=== PATIENT | female | born 1945 | race Caucasian/White ===

== ENCOUNTER 2016-09-27 09:00 | Emergency (ER) | payer MEDICARE, OTHER ==
[2016-09-27] MEDS ORDERED: Sodium Chloride 0.9% 10 ML Syringe FLUSH PRN (09:36)
--- NOTE | 2016-09-27 10:14 | EDM.PDOC ---
ED HISTORY OF PRESENT ILLNESS - General Chief Complaint: Cardiovascular Problem Stated Complaint: tingling to hands, face Time Seen by Provider: 09/27/16 09:17 Source of Information: Reports: Patient History Limitations: Reports: No limitations - History of Present Illness INITIAL COMMENTS - FREE TEXT/NARRATIVE: Patient comes in with complaints of facial numbness to the nose and mouth as well as to bilateral hands. She has had this happen in the past. Prior imaging included a CT, MRI, MRA which did not show any ischemia. They questioned whether this was a migraine or not. She also had elevated blood pressure with this as well. She has no other complaints today. Symptom Onset Date: 09/27/16 Symptom Onset Time: 08:00 Timing/Duration: Reports: Sudden onset Severity: moderate Location, General: Reports: face, upper extremity, left, upper extremity, right Improves with: Reports: None Worsens with: Reports: None Associated Symptoms (General): Reports: other (numbness) - Related Data Allergies/ADRs: Allergies Allergy/AdvReac Type Severity Reaction Status Date / Time codeine Allergy Nausea and Verified 09/27/16 09:59 Vomiting Home Meds: Home Meds Lisinopril [Lisinopril] 10 mg PO DAILY 09/13/15 [History] Multivitamin [Multi-Vitamin Daily] 1 tab PO DAILY 09/13/15 [History] Metoprolol Succinate [Toprol XL] 50 mg PO DAILY 10/24/15 [History] atorvaSTATin [Lipitor] 80 mg PO BEDTIME 10/24/15 [History] Clopidogrel [Plavix] 75 mg PO DAILY 07/06/16 [History] Nitroglycerin [Nitrostat] 0.4 mg SL Q5M PRN 07/06/16 [History] Omeprazole 20 mg PO DAILY PRN 07/06/16 [History] Rivaroxaban [Xarelto] 20 mg PO WITHDINNER 07/06/16 [History] Past Medical History HEENT History: Reports: Cataract, Other (see below) Other HEENT History: presbyopia. myopis. astigmatism Cardiovascular History: Reports: CAD, Heart Failure, High cholesterol, Hypertension, Stents, Other (see below) Other Cardiovascular History: wears a life vest. aortic valve disorder. nonsustained V tach. mitral valve regurgitation. ischemic cardiomyopahty Gastrointestinal History: Reports: Colon polyp, Diverticulosis Musculoskeletal History: Reports: Arthritis, Other (see below) Other Musculoskeletal History: disorder of bone and cartilage Neurological History: Reports: Other (see below) Other Neuro History: multiple and bilateral precerebral artery syndromes. diabetic polyneuropathy Endocrine/Metabolic History: Reports: Diabetes, type II - Past Surgical History HEENT Surgical History: Reports: Adenoidectomy, Tonsillectomy Cardiovascular Surgical History: Reports: Carotid stents GI Surgical History: Reports: Cholecystectomy Social & Family History - Tobacco Use Smoking Status *Q: Unknown Ever Smoked - Recreational Drug Use Recreational Drug Use: No ED ROS GENERAL - Review of Systems Review Of Systems: See Below Constitutional: Reports: no symptoms HEENT: Reports: No symptoms Respiratory: Reports: No Symptoms Cardiovascular: Reports: No symptoms Endocrine: Reports: no symptoms GI/Abdominal: Reports: No symptoms : Reports: no symptoms Musculoskeletal: Reports: no symptoms Skin: Reports: no symptoms Neurological: Reports: Numbness, Tingling (nose, mouth, chin and bilateral hands ) Psychiatric: Reports: No symptoms Hematologic/Lymphatic: Reports: no symptoms Immunologic: Reports: no symptoms ED EXAM, GENERAL - Physical Exam Exam: See Below Exam Limited By: No limitations General Appearance: alert, WD/WN, no apparent distress Eye Exam: bilateral eye: EOMI, PERRL Ears: normal TMs Nose: normal inspection Throat/Mouth: Normal inspection, Normal oropharynx Head: atraumatic, normocephalic Neck: normal inspection, supple Respiratory/Chest: no respiratory distress, lungs clear, normal breath sounds Cardiovascular: normal peripheral pulses, other (sinus rhythm with bigeminal pvc 's) GI/Abdominal: normal bowel sounds, soft Back Exam: normal inspection, full range of motion Extremities: normal inspection, normal range of motion, non-tender, pedal edema Neurological: alert, oriented, CN II-XII intact, normal cognition Psychiatric: normal affect, normal mood Skin Exam: Warm, Dry, Intact, Normal color Lymphatic: no adenopathy Departure - Departure Time of Disposition: 12:40 Disposition: Home, Self-Care 01 Condition: good Clinical Impression: Arrhythmia Qualifiers: Arrhythmia type: other cardiac arrhythmia Qualified Code(s): I49.8 - Other specified cardiac arrhythmias Instructions: Hypomagnesemia, Premature Ventricular Contraction Additional Instructions: I did talk with the secondary social studies teacher merchandise execution leader Dr. Gibbs. He did advise to have you be placed on a holter monitor and to increase your beta shelbie. This is something you will need to follow up with Dr. Hernández as your pulse is borderline for increasing the dose. Make a follow up appointment with Dr. Hernández after your holter monitor. 1. See Dr. Arrington or her nurse for holter application 2. Schedule to see Dr. Hernández Please call with any other questions or concerns. - Problem List & Annotations (1) Arrhythmia SNOMED Code(s): 513059414 Code(s): I49.9 - CARDIAC ARRHYTHMIA, UNSPECIFIED Status: Acute Priority: Medium Current Visit: Yes Qualifiers: Arrhythmia type: other cardiac arrhythmia Qualified Code(s): I49.8 - Other specified cardiac arrhythmias - Problem List Review Problem List Initiated/Reviewed/Updated: Yes - Assessment/Plan Assessment:: Bigeminal PVC's Plan: I did talk with the secondary social studies teacher merchandise execution leader Dr. Gibbs. He did advise to have you be placed on a holter monitor and to increase your beta shelbie. This is something you will need to follow up with Dr. Hernández as your pulse is borderline for increasing the dose. Make a follow up appointment with Dr. Hernández after your holter monitor. 1. See Dr. Arrington or her nurse for holter application 2. Schedule to see Dr. Hernández Please call with any other questions or concerns.
[2016-09-27] MEDS ORDERED: Lisinopril 20 MG Tab PO ONE (11:15)
[2016-09-27] MEDS ORDERED: Magnesium Chloride 64 MG Tab.ER PO ONE (11:19)
[2016-09-27] MEDS ORDERED: Labetalol 20 MG/4 ML Syringe IVPUSH ONE (11:20)
[2016-09-27 15:01] VITALS: BP 184/79
== END 2016-09-27 12:30 | disposition home or self-care (01) ==
LOC: VM.ED 09:00
DX: I49.8 Other specified cardiac arrhythmias (principal); I25.10 Atherosclerotic heart disease of native coronary artery without angina pectoris; I50.9 Heart failure, unspecified; E78.00 Pure hypercholesterolemia, unspecified; I10 Essential (primary) hypertension; I25.5 Ischemic cardiomyopathy; E11.42 Type 2 diabetes mellitus with diabetic polyneuropathy; Z88.8 Allergy status to other drugs, medicaments and biological substances; Z79.899 Other long term (current) drug therapy; Z95.5 Presence of coronary angioplasty implant and graft
CPT/HCPCS: 36415; 70450; 80053; 82550; 82553; 83735; 83880; 84484; 85025; 85610; 93005; 96374; 99285; A9270; 99282-GF

== ENCOUNTER 2017-07-01 15:42 | Inpatient (IN) | payer MEDICARE, OTHER ==
[2017-07-01] MEDS ORDERED: Sodium Chloride 0.9% 1,000 ML IV ONE (15:53)
[2017-07-01] MEDS ORDERED: Iopamidol 612 MG/ML 100 ML Bottle IVPUSH ONE (16:35)
--- NOTE | 2017-07-01 16:52 | EDM.PDOC ---
ED HPI GENERAL MEDICAL PROBLEM - General Chief Complaint: Cardiovascular Problem Stated Complaint: LEFT SIDE PAIN Time Seen by Provider: 07/01/17 15:46 Source of Information: Reports: Patient History Limitations: Reports: No Limitations - History of Present Illness INITIAL COMMENTS - FREE TEXT/NARRATIVE: I received a call from GABE Zacarias from the [facility] regarding this patient. She was sent over to work her up for possible PE. She has a history of prior stent in 2016, PE in 2016 as well. She reports left sided arm , shoulder, and lateral rib/chest pain since this morning. She does also state she is short of breath with exertion. She also states that these symptoms are similar to her prior PE experience. Pain does increase with palpation and movement. Onset: Today, Sudden Onset Date: 07/01/17 Location: Reports: Chest, Upper Extremity, Left Quality: Reports: Pressure, Sharp Severity: Mild Worsens with: Reports: Movement Associated Symptoms: Reports: Shortness of Breath - Related Data Allergies Allergy/AdvReac Type Severity Reaction Status Date / Time codeine Allergy Nausea and Verified 07/01/17 16:49 Vomiting Home Meds: Home Meds Lisinopril [Lisinopril] 10 mg PO DAILY 09/13/15 [History] Multivitamin [Multi-Vitamin Daily] 1 tab PO DAILY 09/13/15 [History] atorvaSTATin [Lipitor] 80 mg PO BEDTIME 10/24/15 [History] Clopidogrel [Plavix] 75 mg PO DAILY 07/06/16 [History] Nitroglycerin [Nitrostat] 0.4 mg SL Q5M PRN 07/06/16 [History] Magnesium 400 mg PO DAILY 11/10/16 [History] Metoprolol Succinate [Toprol Xl] 100 mg PO DAILY 11/10/16 [History] Amiodarone HCl 100 mg PO DAILY 05/23/17 [History] Acetaminophen [Pain Relief] 325 mg PO Q4HR PRN 07/01/17 [History] Aspirin [Halfprin] 81 mg PO DAILY 07/01/17 [History] Cholecalciferol (Vitamin D3) [Vitamin D3] 1,000 units PO DAILY 07/01/17 [History ] Docusate Sodium 100 mg PO DAILY 07/01/17 [History] Past Medical History HEENT History: Reports: Cataract, Other (See Below) Other HEENT History: presbyopia. myopis. astigmatism Cardiovascular History: Reports: CAD, Heart Failure, High Cholesterol, Hypertension, Stents, Other (See Below) Other Cardiovascular History: wears a life vest. aortic valve disorder. nonsustained V tach. mitral valve regurgitation. ischemic cardiomyopahty Gastrointestinal History: Reports: Colon Polyp, Diverticulosis Musculoskeletal History: Reports: Arthritis, Other (See Below) Other Musculoskeletal History: disorder of bone and cartilage Neurological History: Reports: Other (See Below) Other Neuro History: multiple and bilateral precerebral artery syndromes. diabetic polyneuropathy Endocrine/Metabolic History: Reports: Diabetes, Type II - Past Surgical History Cardiovascular Surgical History: Reports: Carotid Stents Social & Family History - Tobacco Use Smoking Status *Q: Unknown Ever Smoked - Recreational Drug Use Recreational Drug Use: No ED ROS GENERAL - Review of Systems Review Of Systems: See Below Constitutional: Reports: No Symptoms HEENT: Reports: No Symptoms Respiratory: Reports: Shortness of Breath Endocrine: Reports: No Symptoms GI/Abdominal: Reports: No Symptoms : Reports: No Symptoms Musculoskeletal: Reports: Shoulder Pain, Back Pain Skin: Reports: No Symptoms Neurological: Reports: No Symptoms Psychiatric: Reports: No Symptoms Hematologic/Lymphatic: Reports: No Symptoms Immunologic: Reports: No Symptoms ED EXAM, GENERAL - Physical Exam Exam: See Below Exam Limited By: No Limitations General Appearance: Alert, WD/WN, Mild Distress Eye Exam: Bilateral Eye: EOMI, PERRL Ears: Normal TMs Throat/Mouth: Normal Inspection, Normal Lips, Normal Teeth, Normal Gums, Normal Oropharynx, Normal Voice, No Airway Compromise Head: Atraumatic, Normocephalic Neck: Normal Inspection, Supple, Non-Tender, Full Range of Motion Respiratory/Chest: No Respiratory Distress, Lungs Clear, Normal Breath Sounds, No Accessory Muscle Use, Chest Non-Tender Cardiovascular: Normal Peripheral Pulses, Regular Rate, Rhythm, No Edema, No Gallop, No JVD, No Murmur, No Rub Peripheral Pulses: 2+: Posterior Tibial (L), Posterior Tibial (R), Dorsalis Pedis (L), Dorsalis Pedis (R) GI/Abdominal: Normal Bowel Sounds, Soft, Non-Tender, No Organomegaly, No Distention, No Abnormal Bruit, No Mass Back Exam: Normal Inspection, Full Range of Motion, NT Extremities: Normal Capillary Refill, Arm Pain (left arm pain) Neurological: Alert, Oriented, CN II-XII Intact, Normal Cognition, Normal Gait, Normal Reflexes, No Motor/Sensory Deficits Psychiatric: Normal Affect, Normal Mood Skin Exam: Warm, Dry, Intact, Normal Color, No Rash Lymphatic: No Adenopathy EKG INTERPRETATION EKG Date: 07/01/17 Time: 15:56 Rhythm: NSR Celina: Normal P-Wave: Present QRS: Normal ST-T: Normal QT: Normal Course - Orders/Labs/Meds Orders: Active Orders 24 hr Category Date Time Status EKG Documentation Completion [RC] ROUTINE Care 07/01/17 15:53 Ordered Ang Chest [CT] Stat Exams 07/01/17 15:53 Ordered COMPREHENSIVE METABOLIC PN,CMP [CHEM] Stat Lab 07/01/17 15:53 Ordered PRO B-TYPE NATRIUR PEPT,BNPPRO [CHEM] Stat Lab 07/01/17 15:53 Ordered Sodium Chloride 0.9% [Normal Saline] 1,000 ml Med 07/01/17 15:53 Ordered IV ONETIME Sodium Chloride 0.9% [Saline Flush] Med 07/01/17 15:53 Ordered 10 ml FLUSH ASDIRECTED PRN Saline Lock Insert [OM.PC] Routine Oth 07/01/17 15:53 Ordered Medication Orders Sodium Chloride (Normal Saline) 1,000 mls @ 999 mls/hr IV ONETIME ONE Stop: 07/01/17 16:53 Last Admin: 07/01/17 16:10 Dose: 999 mls/hr Sodium Chloride (Saline Flush) 10 ml FLUSH ASDIRECTED PRN PRN Reason: Keep Vein Open Labs: Laboratory Tests 07/01/17 07/01/17 Range/Units 16:06 16:06 WBC 8.1 (4.0-10.0) x10^3/uL RBC 3.62 L (4.00-5.50) x10^6/uL Hgb 11.2 L (12.0-16.0) g/dL Hct 35.1 (33.0-47.0) % MCV 97.0 H D (78.0-93.0) fL MCH 30.9 (26.0-32.0) pg MCHC 31.9 L (32.0-36.0) g/dL RDW Coeff of Sarah 14.2 (10.0-15.0) % Plt Count 194 (130-400) x10^3/uL Neut % (Auto) 71.4 (50.0-80.0) % Lymph % (Auto) 15.6 L (25.0-50.0) % Coleman % (Auto) 12.2 H (2.0-11.0) % Eos % (Auto) 0.7 (0.0-4.0) % Baso % (Auto) 0.1 L (0.2-1.2) % PT 10.5 (9.8-11.8) SEC INR 1.0 L (2.0-3.5) D-Dimer, Quantitative > 4.40 H (<=0.58) mg/LFEU Meds: Medications Generic Name Dose Route Start Last Admin Trade Name Freq PRN Reason Stop Dose Admin Sodium Chloride 1,000 mls @ 999 mls/hr 07/01/17 15:53 07/01/17 16:10 Normal Saline IV 07/01/17 16:53 999 mls/hr ONETIME ONE Administration Sodium Chloride 10 ml 07/01/17 15:53 Saline Flush FLUSH ASDIRECTED PRN Keep Vein Open Discontinued Medications Generic Name Dose Route Start Last Admin Trade Name Freq PRN Reason Stop Dose Admin Iopamidol 100 ml 07/01/17 16:35 Isovue-300 (61%) IVPUSH 07/01/17 16:36 ONETIME ONE - Re-Assessments/Exams Free Text/Narrative Re-Assessment/Exam: 07/01/17 18:28 CTA shows bilateral pulmonary emboli will admit Departure - Departure Time of Disposition: 18:40 Disposition: Admitted As Inpatient 66 Condition: Good Clinical Impression: Bilateral pulmonary embolism Forms: ED Department Discharge - My Orders Last 24 Hours: My Active Orders 07/01/17 15:53 EKG Documentation Completion [RC] ROUTINE Ang Chest [CT] Stat COMPREHENSIVE METABOLIC PN,CMP [CHEM] Stat PRO B-TYPE NATRIUR PEPT,BNPPRO [CHEM] Stat Sodium Chloride 0.9% [Normal Saline] 1,000 ml IV ONETIME Sodium Chloride 0.9% [Saline Flush] 10 ml FLUSH ASDIRECTED PRN Saline Lock Insert [OM.PC] Routine - Assessment/Plan Last 24 Hours: My Active Orders 07/01/17 15:53 EKG Documentation Completion [RC] ROUTINE Ang Chest [CT] Stat COMPREHENSIVE METABOLIC PN,CMP [CHEM] Stat PRO B-TYPE NATRIUR PEPT,BNPPRO [CHEM] Stat Sodium Chloride 0.9% [Normal Saline] 1,000 ml IV ONETIME Sodium Chloride 0.9% [Saline Flush] 10 ml FLUSH ASDIRECTED PRN Saline Lock Insert [OM.PC] Routine
[2017-07-01] MEDS ORDERED: HYDROmorphone 1 MG/ML Syringe IVPUSH ONE (20:21)
[2017-07-01] MEDS: Sodium Chloride 0.9% 10 ML Syringe FLUSH PRN (20:26)
[2017-07-01] MEDS: Enoxaparin 80 MG/0.8 ML Syringe SUBCUT SCH (20:26)
[2017-07-01] MEDS ORDERED: Nitroglycerin 0.4 MG Tab.SL SL PRN (22:07)
[2017-07-01] MEDS ORDERED: Docusate Sodium 100 MG Cap PO PRN (22:07)
[2017-07-01] MEDS ORDERED: HYDROmorphone 1 MG/ML Syringe IVPUSH PRN (22:20)
[2017-07-02] MEDS: atorvaSTATin 40 MG Tab PO SCH ×2 (01:27→19:53)
[2017-07-02] MEDS: Sodium Chloride 0.9% 10 ML Syringe FLUSH PRN ×4 (01:34→19:54)
[2017-07-02] MEDS: Ondansetron 4 MG/2 ML SDV IVPUSH PRN (03:05)
[2017-07-02] MEDS: Amiodarone 200 MG Tab PO SCH (08:00)
[2017-07-02] MEDS ORDERED: Lisinopril 10 MG Tab PO SCH (08:00)
[2017-07-02] MEDS: Enoxaparin 80 MG/0.8 ML Syringe SUBCUT SCH (08:00)
[2017-07-02] MEDS: Aspirin 81 MG Tab.EC PO SCH (08:02)
[2017-07-02] MEDS: Metoprolol Succinate 50 MG Tab.ER PO SCH (08:03)
[2017-07-02] MEDS: Magnesium Oxide 400 MG Tab PO SCH (08:03)
[2017-07-02] MEDS: traMADol 50 MG Tab PO PRN ×3 (08:04→21:52)
--- NOTE | 2017-07-02 09:50 | HP ---
REASON FOR ADMISSION: Shortness of breath and pleuritic chest pain. HISTORY OF PRESENT ILLNESS: This 71-year-old white female had the onset about 4:30 this morning of a stabbing pain, started in her left shoulder, moved down into her left lateral chest, did not go into her arm, otherwise was pleuritic in character. She rated the pain at 8/10. She tried to go back to sleep about 7:30, could sleep and got up. She did report shortness of breath and fatigue. Later during the day moved over to the right side of her lungs, also on right chest wall. She had come to see her who is on swing bed. She was going home, decided that she needs to be seen, was seen in the clinic, and then we transferred her to the emergency room for further evaluation and management; with subsequent evaluation revealed bilateral PE. PAST MEDICAL HISTORY: Significant. She has coronary artery disease, question of [place], congestive heart failure, ischemic cardiomyopathy. She had a stent placed in 2015. She continues on both aspirin and Plavix for this. She also has aortic valve disease. In 2015, she had bilateral PE and a right DVT, treated with Xarelto for about 1 year. This was stopped in January of this 2016. Sometime in 2015, she had a hemoglobin drop to 6.2 while she was on the aspirin, Plavix, and Xarelto. She needed 2 units of blood. She had an EGD but no colonoscopy. They are not certain as to why the hemoglobin dropped. No evidence of blood loss that they could find per her report. Last colonoscopy was in 2011. Her father has a history of colon cancer. She has had cataract surgery, cholecystectomy for cholelithiasis, tonsils, bilateral tubal ligation. She has osteoarthritis in her knees. She had a fall this past . MEDICATIONS: 1. Plavix 75 mg daily. 2. Amiodarone 100 mg daily. 3. Lipitor 80 mg at bedtime. 4. Metoprolol succinate 50 mg daily. 5. Magnesium 400 mg daily. 6. Lisinopril 10 mg daily. 7. Multivitamin daily. 8. Aspirin 81 mg daily. 9. Vitamin D3 1000 units daily. 10.Tylenol p.r.n. 11.Colace 100 mg daily p.r.n. 12.Nitroglycerin sublingual p.r.n. ALLERGIES: Codeine causes GI upset with nausea and vomiting. REVIEW OF SYSTEMS: She has had an occasional cough. No nausea or vomiting. No numbness or tingling. No abdominal pain. She has slight headache. No dizziness. No lightheadedness. No change in bowel or bladder habits. OBJECTIVE: General: She is alert. Vital Signs: She is afebrile. Blood pressure is 148/78, pulse 101, respirations are 20, O2 saturation is 97% on room air. HEENT: TMs negative. Throat is clear. Neck: Supple. No adenopathy. Heart: Regular rate and rhythm. No murmur heard. Lungs: The lungs have decreased breath sounds. Otherwise clear. Abdomen: Soft and nontender. No masses palpable. No hepatosplenomegaly noted. Normoactive bowel sounds. Neurological: Cranial nerves are intact. Deep tendon reflexes are symmetrical. Sensation is intact. Extremities: Moves all 4 extremities. There is no edema. Pulses are intact. The left lateral chest wall is somewhat tender to palpation, but there is also significant pain with respiration. LABORATORY DATA: White count is 8.1, hemoglobin is 11.2. INR 1, D-dimer is over 4.4. Creatinine is 1.8, GFR of 28, glucose 141. LFTs are normal. ProBNP is 349. Albumin 3.1. EKG shows normal sinus rhythm. No acute changes. CT PE protocol shows significant bilateral pulmonary emboli as read per Radiology. ASSESSMENT: 1. Bilateral pulmonary emboli. 2. Coronary artery disease status post stenting. 3. History of ischemic cardiomyopathy. 4. Congestive heart failure. 5. Hypertension. 6. Diabetes mellitus type 2. PLAN: The patient will be admitted to acute care, will be kept on aspirin. Hold her Plavix. Start Lovenox 1 mg/kg q.12 hours for PE treatment. We will need to discuss with leaflet distributor how they would like to proceed with her anticoagulation and anti-platelet agents. We will consider aspirin and Eliquis. At this point, I do not feel that Xarelto would be appropriate as her GFR is 28. Continue other medications. Manage her pain. Monitor her condition. She states Dr. Brandy Arrington is her primary provider. FM: 07/01/2017 22:20:06 MODL: 07/02/2017 06:09:13 /[id number] MTDVick
[2017-07-02] MEDS: Acetaminophen 325 MG Tab PO PRN ×2 (10:31→19:53)
--- NOTE | 2017-07-02 15:35 | PN ---
Progress Note for DARVIN CHANG Date: 07/02/2017 Room #: VM.214 SUBJECTIVE: A 71-year-old white female admitted last evening with bilateral pulmonary emboli. She was started on therapeutic Lovenox b.i.d., and given Dilaudid and tramadol for pain control. The first dose of Dilaudid, she tolerated. The second dose last evening caused nausea and vomiting requiring treatment with Zofran. She was then given tramadol earlier this morning, which seemed to help her pain and she tolerated. She continues to have some left pleuritic chest pain moving over to the right side. She also spiked a temperature today up to 102. Given some Tylenol, this improved her temperature and also the associated headache. OBJECTIVE: General: She is alert. Vital Signs: Pulse is 73, blood pressure is 125/50, respirations of 14, and O2 saturations are 94% on room air. HEART: Regular rate and rhythm. LUNGS: Clear. ABDOMEN: Soft. EXTREMITIES: No edema. LABORATORY DATA: Today, white count 6.9, hemoglobin 10.2. Electrolytes are normal. Creatinine is improved to 1.5, GFR 34, glucose was 193. Review of CT scan for PE last evening indicates patchy infiltrates in the right upper lobe, felt to be infarctions along with bilateral PE. ASSESSMENT: 1. Bilateral pulmonary embolism. 2. Fever. PLAN: 1. Continue aspirin and Lovenox. 2. Contact Cardiology to discuss appropriate anticoagulation in lieu of her being previously on aspirin and Plavix. 3. Obtain chest x-ray and urinalysis. 4. Obtain lactic acid and lab drawn this morning. 5. Monitor her condition. FM: 07/02/2017 12:12:17 MODL: 07/02/2017 15:31:01 /[id number]
[2017-07-02] MEDS: Apixaban 2.5 MG Tab PO SCH (19:54)
[2017-07-03] MEDS ORDERED: Lisinopril 10 MG Tab PO SCH ×2 (07:54→09:35)
[2017-07-03] MEDS: Ondansetron 4 MG/2 ML SDV IVPUSH PRN (08:00)
[2017-07-03] MEDS: Lisinopril 10 MG Tab PO SCH (10:07)
[2017-07-03] MEDS: Apixaban 2.5 MG Tab PO SCH ×2 (10:08→20:22)
[2017-07-03] MEDS: Aspirin 81 MG Tab.EC PO SCH (10:09)
[2017-07-03] MEDS: Amiodarone 200 MG Tab PO SCH (10:09)
[2017-07-03] MEDS: Metoprolol Succinate 50 MG Tab.ER PO SCH (10:10)
[2017-07-03] MEDS: Magnesium Oxide 400 MG Tab PO SCH (10:10)
--- NOTE | 2017-07-03 10:33 | PN ---
Progress Note for DARVIN CHANG Date: 07/03/2017 Room #: VM.214 SUBJECTIVE: A 71-year-old white female, admitted on Tuesday evening with bilateral pulmonary embolism. She states her chest pain is improved, but still has pain. She rolls over to the left side and some pain in the bases with deep breaths. She complains of being dyspneic. She is a little bit lightheaded when she sits up. She has had problems with some nausea yesterday and some nausea again this morning. She is noted to be hypotensive with blood pressures running in the 100 systolic range. OBJECTIVE: General: She is alert. Vital Signs: Blood pressure has been running 99 to 112 this morning, sometimes 128. Pulse is in the 70s. She is afebrile today. O2 sats down to 92% on room air. Heart: Regular rate and rhythm. Lungs: Clear to auscultation. Abdomen: Soft, nontender. No mass. Extremities: No edema. Warm and dry. LABORATORY DATA: From yesterday, chest x-ray was consistent with post PE pleural reaction and bibasilar atelectasis. No evidence of pulmonary infarction on previous CT scan. Next, urinalysis was unremarkable. ASSESSMENT: 1. Bilateral pulmonary embolism. 2. Evidence of pulmonary infarction. 3. Hypotension. 4. Nausea. PLAN: 1. Because of hypotension, would decrease lisinopril to 5 mg daily. 2. Start her O2 at 2 L because of mild decline in O2 sats and evidence of pulmonary infarction. 3. Zofran for nausea. 4. Continue to monitor her condition. She will continue on acute care status to monitor her current vital signs and O2 sats. 5. Dr. Brandy Arrington will assume care in the morning. FM: 07/03/2017 10:01:07 MODL: 07/03/2017 10:29:57 /[id number] DAVID
[2017-07-03] MEDS: Acetaminophen 325 MG Tab PO PRN (14:08)
[2017-07-03] MEDS: atorvaSTATin 40 MG Tab PO SCH (20:22)
[2017-07-03] MEDS: Sodium Chloride 0.9% 10 ML Syringe FLUSH PRN (20:24)
[2017-07-04] MEDS: Acetaminophen 325 MG Tab PO PRN (02:49)
[2017-07-04] MEDS: Apixaban 2.5 MG Tab PO SCH (07:54)
[2017-07-04] MEDS: Lisinopril 10 MG Tab PO SCH (07:55)
[2017-07-04] MEDS: Magnesium Oxide 400 MG Tab PO SCH (07:55)
[2017-07-04] MEDS: Metoprolol Succinate 50 MG Tab.ER PO SCH (07:55)
[2017-07-04] MEDS: Aspirin 81 MG Tab.EC PO SCH (07:56)
[2017-07-04] MEDS: Amiodarone 200 MG Tab PO SCH (07:56)
[2017-07-04 09:49] VITALS: BP 115/55
--- NOTE | 2017-07-04 10:06 | PN ---
Progress Note for DARVIN CHANG Date: 07/04/2017 Room #: VM.214 SUBJECTIVE: She is feeling much better today. The patient has left chest wall soreness. Her blood pressure has improved. She is not having as much chest wall pain. She does feel able to go home today. OBJECTIVE: Vital Signs: Her temperature is 36.6, pulse 64, blood pressure is 127/61. Her sats were 98% on room air. General; Alert, appears comfortable on room air. Heart: Regular rate and rhythm. Lungs: Some inspiratory crackles bilaterally. Abdomen: Soft. Neuro: Alert times 3. Psych; Mood is good. LABORATORY DATA: Her hemoglobin today is 10.0. Sodium is 140, potassium 4.7, and creatinine 1.5. IMPRESSION: 1. Bilateral pulmonary embolisms. 2. Hypotension, improved. 3. Hypertension. 4. Pleuritic chest pain. 5. Anemia. PLAN: We will let the patient go home today. We will keep her on her lower dose of lisinopril of 5 mg a day. I am going to have her return to see me in the clinic in 10 days' time for a recheck. The eliquis will be 10 mg bid for 1 week, then 5 mg bid. GM07/04/2017 08:46:37 MODL: 07/04/2017 09:09:40 /[id number] MTDD
--- NOTE | 2017-07-05 00:28 | DISCH ---
PRIMARY DIAGNOSES: 1. Bilateral pulmonary embolism. 2. Hypoxemia due to pulmonary embolism. 3. Hypotension due to pain medications. 4. Hypertension. 5. Coronary artery disease. 6. Anemia, multifactorial. SUMMARY OF ADMIT HISTORY AND PHYSICAL: The patient is a 71-year-old female who presented initially to the clinic on 07/01/2016. She was having some left shoulder aching and soreness. She was concerned as this is what she had felt like before when she had PE. She denies being short of breath. Her has been hospitalized with recent problems with his lung cancer health and so she probably has not been as active as she used to be. SUMMARY OF HOSPITAL COURSE: When the patient was seen in the emergency room, she was found to have a positive D-dimer greater than 4.4. CT of chest showed bilateral PEs. The patient's EKG was normal. Troponin was normal. The patient was admitted to acute care. She was placed on heparin and Eliquis after provider conferred with leaf stamper. Her Plavix was stopped. She was placed on a baby aspirin. To note, she received some Dilaudid for pain control for her pleuritic chest pain. She became hypotensive and nauseated and needed to have some Zofran. Her lisinopril dose was reduced down. Her blood pressure on the day of discharge was good at 124. Her lab had shown that her hemoglobin on admission had been 11.2 had dropped down to 10.0, white blood cell count 6.1, platelets were 216. Discharge sodium was 140, potassium 4.7, creatinine 1.5 it was 1.8 on admission. GFR was 28 on admission, was up to 34. Her troponin was less than 0.017 on admission. ProBNP was 349 on admission. Urinalysis was checked, it was negative. To note, a chest x-ray was done on 07/02/2016, which did show some atelectasis on bases, which was felt to be subsequent due to her PEs. By the morning of 07/04, she was up here, walking around, and felt to be able to go home. MEDICATIONS: Her medications on discharge will be Eliquis 10 mg b.i.d. through 07/09/2017, then she will be placed on 5 mg 1 p.o. b.i.d., most likely indefinite use. She will be on acetaminophen 325 q.4 hours p.r.n., amiodarone 100 mg 1 pill daily, aspirin 81 mg 1 pill daily, Lipitor 80 mg 1 at bedtime, docusate 100 mg 1 daily p.r.n., lisinopril 5 mg daily, magnesium oxide 400 mg 1 pill daily, metoprolol succinate 50 mg 1 pill daily, nitroglycerin 0.4 q.5 minutes x3 p.r.n. The patient should use an incentive spirometry q.i.d. p.r.n. We will have her return to see me in the clinic in 10 days time. At that time, she will need to have a CBC and a basic metabolic profile. Also, she will need a chest x-ray for followup of her lung expansion. GM07/04/2017 08:50:19 MODL: 07/05/2017 00:23:15 /[id number]
[2017-07-05] MEDS ORDERED: Lisinopril 5 MG Tab PO SCH (08:00)
[2017-07-09] MEDS ORDERED: Apixaban 2.5 MG Tab PO SCH (20:00)
== END 2017-07-04 13:18 | disposition home or self-care (01) | DRG 176 ==
LOC: VM.ED 15:42 → VM.MS 18:30
PROVIDERS: ADMIT Family Medicine; ATTEND Family Medicine
DX: I26.99 Other pulmonary embolism without acute cor pulmonale (principal); J98.11 Atelectasis; R09.02 Hypoxemia; I95.2 Hypotension due to drugs; I25.10 Atherosclerotic heart disease of native coronary artery without angina pectoris; D64.9 Anemia, unspecified; I50.9 Heart failure, unspecified; I35.9 Nonrheumatic aortic valve disorder, unspecified; Z86.718 Personal history of other venous thrombosis and embolism; E11.9 Type 2 diabetes mellitus without complications; I11.0 Hypertensive heart disease with heart failure; R06.02 Shortness of breath
CPT/HCPCS: 71275; 80053; 83880; 84484; 85025; 85379; 85610; 93005; 96360; 96361; 99285; J7030; Q9967; 36415; 71046; 80048; 81001; 83605; 85027; 94760; A9270-GY; J1170; J1650; J2405; J7050

== ENCOUNTER 2021-10-26 08:44 | Emergency (ER) | payer MEDICARE, OTHER ==
[2021-10-26] MEDS ORDERED: Sodium Chloride 0.9% 10 ML Syringe FLUSH PRN (09:04)
[2021-10-26 09:47] LABS: ANION GAP 15.3 mmol/L (5-15)
[2021-10-26] MEDS: Aspirin 81 MG Tab.Chew PO ONE (10:18)
[2021-10-26] MEDS: Heparin Sodium 5,000 Units/ML Vial IVPUSH ONE (10:34)
[2021-10-26] MEDS: Heparin Sodium/0.45% NaCl 25,000 UNITS/500 ML BAG IV SCH (10:37)
[2021-10-26 16:36] VITALS: BP 142/90; PULSE 98
== END 2021-10-26 16:00 | disposition short-term general hospital (02) ==
LOC: VM.ED 08:44
DX: I21.4 Non-ST elevation (NSTEMI) myocardial infarction (principal); R68.84 Jaw pain; I25.10 Atherosclerotic heart disease of native coronary artery without angina pectoris; I11.0 Hypertensive heart disease with heart failure; I50.9 Heart failure, unspecified; E11.42 Type 2 diabetes mellitus with diabetic polyneuropathy; Z79.01 Long term (current) use of anticoagulants; Z88.5 Allergy status to narcotic agent; Z79.82 Long term (current) use of aspirin; Z79.899 Other long term (current) drug therapy
CPT/HCPCS: 36415; 71045; 80053; 81003; 83880; 84484; 85025; 85610; 85730; 93005; 93010; 96365; 96366; 96376; 99284; 99285-25; A9270-GY; J1644

== ENCOUNTER 2023-01-04 20:53 | Observation (INO) | payer MEDICARE, OTHER ==
[2023-01-04] MEDS ORDERED: Sodium Chloride 0.9% 10 ML Syringe FLUSH PRN (21:00)
[2023-01-04 21:16] LABS: BASOPHILS PERCENT AUTO 0.1 % (0.2-1.2); EOSINOPHILS PERCENT AUTO 0.5 % (0.0-4.0); HEMATOCRIT 26.1 % (33.0-47.0); HEMOGLOBIN 8.8 g/dL (12.0-16.0); IMMATURE GRAN ABSOLUTE AUTO 0.03 x10^3/uL (0.00-0.07); LYMPHOCYTES ABSOLUTE AUTO 1.2 x10^3/uL (1.0-4.8); LYMPHOCYTES PERCENT AUTO 13.9 % (25.0-50.0); MEAN CORPUSCULAR HEMOGLOBIN 31.7 pg (26.0-32.0); MEAN CORPUSCULAR HGB CONC 33.7 g/dL (32.0-36.0); MEAN CORPUSCULAR VOLUME 93.9 fL (78.0-93.0); MONOCYTES ABSOLUTE AUTO 0.9 x10^3/uL (0.0-0.8); NEUTROPHILS ABSOLUTE AUTO 6.2 x10^3/uL (1.8-7.7); NEUTROPHILS PERCENT AUTO 74.1 % (50.0-80.0); PLATELET COUNT,PLT 160 x10^3/uL (130-400); RED BLOOD CELL COUNT 2.78 x10^6/uL (4.00-5.50); WHITE BLOOD CELL COUNT,WBC 8.3 x10^3/uL (4.0-10.0)
[2023-01-04 21:28] LABS: INR 2.1 (2.0-3.5); PROTHROMBIN TIME 21.6 SEC (9.5-12.2); PTT,PARTIAL THROMBOPLSTIN TIME 40.4 SEC (23.6-33.6)
[2023-01-04 21:30] LABS: APPEARANCE,URINE CLEAR (CLEAR); BILIRUBIN,URINE NEGATIVE (NEGATIVE); COLOR,URINE YELLOW (YELLOW); GLUCOSE,URINE NEGATIVE (NEGATIVE); KETONES,URINE 15 mg/dL (NEGATIVE); LEUKOCYTE ESTERASE,URINE NEGATIVE (NEGATIVE); NITRITE,URINE NEGATIVE (NEGATIVE); OCCULT BLOOD,URINE NEGATIVE (NEGATIVE); PH,URINE 5.5 (5.0-8.0); PROTEIN,URINE NEGATIVE (NEGATIVE); UROBILINOGEN,URINE 0.2 EU/dL (0.2)
[2023-01-04 21:32] LABS: A/G RATIO 0.67; ALBUMIN 2.6 g/dL (3.4-5.0); BILIRUBIN TOTAL 1.7 mg/dL (0.2-1.0); CALCIUM 8.4 mg/dL (8.5-10.1); CREATININE 1.3 mg/dL (0.55-1.02); EST CRCL DRUG DOSING (CG) 33.13 mL/min; POTASSIUM,K 4.1 mmol/L (3.5-5.1); PROTEIN TOTAL,TP 6.5 g/dL (6.4-8.2)
[2023-01-04 21:33] LABS: ANION GAP 14.1 mmol/L (5-15)
[2023-01-04 21:35] LABS: BACTERIA,URINE NOT SEEN /HPF (NOT SEEN); MUCUS,URINE NOT SEEN /LPF (NOT SEEN); RBC,URINE 0-5 /HPF (NOT SEEN); SQUAMOUS EPITHELIAL CELLS,UR FEW /HPF (NOT SEEN); WBC,URINE NOT SEEN /HPF (NOT SEEN)
[2023-01-04 21:37] LABS: C-REACTIVE PROTEIN 14.63 mg/dL (<=0.30); LACTIC ACID 1.7 mmol/L (0.4-2.0); MAGNESIUM 1.5 mg/dL (1.8-2.4)
[2023-01-04] MEDS ORDERED: Iopamidol 612 MG/ML 100 ML Bottle IVPUSH ONE (21:50)
[2023-01-04] MEDS ORDERED: Piperacillin/Tazobactam 3.375 GM in Sodium Chloride 0.9% 100 ML IV ONE (23:46)
[2023-01-04] MEDS ORDERED: Lactated Ringers 1,000 ML IV ONE (23:59)
[2023-01-05] MEDS ORDERED: Magnesium Sulfate/Water 2 GM in Premix Bag 1 BAG IV ONE ×2
[2023-01-05] MEDS ORDERED: Sodium Chloride 0.9% 10 ML Syringe FLUSH PRN (00:27)
[2023-01-05] MEDS ORDERED: Polyethylene Glycol 3350 Powder 17 GM Packet PO PRN (00:30)
[2023-01-05] MEDS ORDERED: Acetaminophen 325 MG Tab PO PRN (00:30)
[2023-01-05] MEDS ORDERED: Sennosides/Docusate Sodium 50-8.6 MG Tab PO PRN (00:30)
[2023-01-05] MEDS ORDERED: Naloxone 0.4 MG/ML SDV IVPUSH PRN (00:33)
[2023-01-05] MEDS: HYDROmorphone 0.5 MG/0.5 ML Syringe IVPUSH PRN ×3 (01:26→08:45)
[2023-01-05 07:05] LABS: BASOPHILS PERCENT AUTO 0.1 % (0.2-1.2); EOSINOPHILS ABSOLUTE AUTO 0.1 x10^3/uL (0.0-0.5); EOSINOPHILS PERCENT AUTO 0.7 % (0.0-4.0); HEMATOCRIT 22.3 % (33.0-47.0); HEMOGLOBIN 7.4 g/dL (12.0-16.0); IMMATURE GRAN ABSOLUTE AUTO 0.02 x10^3/uL (0.00-0.07); LYMPHOCYTES ABSOLUTE AUTO 1.4 x10^3/uL (1.0-4.8); LYMPHOCYTES PERCENT AUTO 19.5 % (25.0-50.0); MEAN CORPUSCULAR HEMOGLOBIN 31.5 pg (26.0-32.0); MEAN CORPUSCULAR HGB CONC 33.2 g/dL (32.0-36.0); MEAN CORPUSCULAR VOLUME 94.9 fL (78.0-93.0); MONOCYTES PERCENT AUTO 14.2 % (2.0-11.0); NEUTROPHILS ABSOLUTE AUTO 4.7 x10^3/uL (1.8-7.7); NEUTROPHILS PERCENT AUTO 65.2 % (50.0-80.0); PLATELET COUNT,PLT 150 x10^3/uL (130-400); RED BLOOD CELL COUNT 2.35 x10^6/uL (4.00-5.50); WHITE BLOOD CELL COUNT,WBC 7.2 x10^3/uL (4.0-10.0)
[2023-01-05 07:29] LABS: LACTIC ACID 0.6 mmol/L (0.4-2.0)
[2023-01-05] MEDS ORDERED: Piperacillin/Tazobactam 3.375 GM in Sodium Chloride 0.9% 100 ML IV SCH (08:00)
[2023-01-05] MEDS ORDERED: Multivitamin Tab PO SCH (09:00)
[2023-01-05] MEDS ORDERED: Metoprolol Succinate 50 MG Tab.ER PO SCH (09:00)
[2023-01-05] MEDS ORDERED: Furosemide 40 MG Tab PO SCH (09:00)
[2023-01-05] MEDS ORDERED: Lisinopril 10 MG Tab PO SCH (09:00)
[2023-01-05 11:20] VITALS: BP 123/58; PULSE 71
[2023-01-05] MEDS ORDERED: Gabapentin 100 MG Cap PO SCH (21:00)
[2023-01-05] MEDS ORDERED: Cholecalciferol (Vitamin D3) 25 MCG Tab PO SCH (21:00)
[2023-01-05] MEDS ORDERED: atorvaSTATin 40 MG Tab PO SCH (21:00)
== END 2023-01-05 11:10 | disposition short-term general hospital (02) ==
LOC: VM.ED 20:53 → VM.MS 01-05 00:21 → UNDOADMOB 01-05 00:21
PROVIDERS: ADMIT Physician Assistant; ATTEND Physician Assistant
DX: K57.30 Diverticulosis of large intestine without perforation or abscess without bleeding (principal); I25.10 Atherosclerotic heart disease of native coronary artery without angina pectoris; I50.9 Heart failure, unspecified; E78.00 Pure hypercholesterolemia, unspecified; I11.0 Hypertensive heart disease with heart failure; I25.2 Old myocardial infarction; E11.42 Type 2 diabetes mellitus with diabetic polyneuropathy; Z95.810 Presence of automatic (implantable) cardiac defibrillator; Z79.01 Long term (current) use of anticoagulants; Z88.5 Allergy status to narcotic agent; Z79.899 Other long term (current) drug therapy; M19.90 Unspecified osteoarthritis, unspecified site; Z86.010 Personal history of colon polyps
CPT/HCPCS: 36415; 74177; 80053; 81001; 83605; 83690; 83735; 84484; 85025; 85610; 85730; 86140; 87040; 94760; 96365; 96367; 99223; 99239; 99285-25; J1170; J2543; J3475; J3490; J7120; Q9967

== ENCOUNTER 2023-06-27 16:26 | Inpatient (IN) | payer MEDICARE, OTHER ==
[2023-06-27] MEDS ORDERED: Ondansetron 4 MG/2 ML SDV IV PRN (17:13)
[2023-06-27] MEDS ORDERED: Sodium Chloride 0.9% 10 ML Syringe IV PRN (17:35)
[2023-06-27] MEDS ORDERED: HYDROmorphone 0.5 MG/0.5 ML Syringe IVPUSH PRN (17:43)
[2023-06-27] MEDS ORDERED: Naloxone 0.4 MG/ML SDV IVPUSH PRN (17:43)
[2023-06-27] MEDS ORDERED: Acetaminophen 325 MG Tab PO PRN ×2 (17:44→18:59)
[2023-06-27] MEDS ORDERED: Warfarin 2 MG Tab PO SCH (18:00)
[2023-06-27] MEDS ORDERED: [UNRECOGNIZED DRUG - REMARK] SCH (18:00)
[2023-06-27] MEDS ORDERED: Piperacillin/Tazobactam 4.5 GM in Sodium Chloride 0.9% 100 ML IV ONE (18:00)
[2023-06-27 18:22] LABS: LACTIC ACID 1.2 mmol/L (0.4-2.0)
[2023-06-27] MEDS ORDERED: traMADol 50 MG Tab PO PRN (18:59)
[2023-06-27 19:11] LABS: APPEARANCE,URINE CLOUDY (CLEAR); BILIRUBIN,URINE NEGATIVE (NEGATIVE); COLOR,URINE LIGHT YELLOW (YELLOW); GLUCOSE,URINE NEGATIVE (NEGATIVE); KETONES,URINE NEGATIVE (NEGATIVE); LEUKOCYTE ESTERASE,URINE MODERATE (NEGATIVE); NITRITE,URINE NEGATIVE (NEGATIVE); OCCULT BLOOD,URINE SMALL (NEGATIVE); PROTEIN,URINE NEGATIVE (NEGATIVE); UROBILINOGEN,URINE 0.2 EU/dL (0.2)
[2023-06-27 19:25] LABS: BACTERIA,URINE FEW /HPF (NOT SEEN); MUCUS,URINE OCCASIONAL /LPF (NOT SEEN); SQUAMOUS EPITHELIAL CELLS,UR FEW /HPF (NOT SEEN); WBC,URINE 75-100 /HPF (NOT SEEN)
[2023-06-27] MEDS: Lactated Ringers 1,000 ML IV SCH (20:25)
[2023-06-27] MEDS: Gabapentin 100 MG Cap PO SCH (20:26)
[2023-06-27] MEDS: Piperacillin/Tazobactam 4.5 GM in Sodium Chloride 0.9% 100 ML IV SCH (22:41)
[2023-06-28] MEDS: Piperacillin/Tazobactam 4.5 GM in Sodium Chloride 0.9% 100 ML IV SCH ×3 (05:30→21:15)
[2023-06-28 06:55] LABS: BASOPHILS PERCENT AUTO 0.3 % (0.2-1.2); EOSINOPHILS ABSOLUTE AUTO 0.2 x10^3/uL (0.0-0.5); EOSINOPHILS PERCENT AUTO 2.6 % (0.0-4.0); HEMATOCRIT 26.5 % (33.0-47.0); HEMOGLOBIN 8.6 g/dL (12.0-16.0); IMMATURE GRAN ABSOLUTE AUTO 0.01 x10^3/uL (0.00-0.07); LYMPHOCYTES ABSOLUTE AUTO 1.6 x10^3/uL (1.0-4.8); LYMPHOCYTES PERCENT AUTO 23.7 % (25.0-50.0); MEAN CORPUSCULAR HEMOGLOBIN 30.5 pg (26.0-32.0); MEAN CORPUSCULAR HGB CONC 32.5 g/dL (32.0-36.0); MONOCYTES ABSOLUTE AUTO 0.7 x10^3/uL (0.0-0.8); MONOCYTES PERCENT AUTO 10.9 % (2.0-11.0); NEUTROPHILS ABSOLUTE AUTO 4.1 x10^3/uL (1.8-7.7); NEUTROPHILS PERCENT AUTO 62.3 % (50.0-80.0); PLATELET COUNT,PLT 212 x10^3/uL (130-400); RED BLOOD CELL COUNT 2.82 x10^6/uL (4.00-5.50); WHITE BLOOD CELL COUNT,WBC 6.5 x10^3/uL (4.0-10.0)
[2023-06-28 07:10] LABS: INR 1.9 (0.9-1.1); PROTHROMBIN TIME 19.5 SEC (9.5-12.2)
[2023-06-28 07:24] LABS: LACTIC ACID 0.7 mmol/L (0.4-2.0)
[2023-06-28 07:27] LABS: A/G RATIO 0.47; ANION GAP 12.7 mmol/L (5-15); C-REACTIVE PROTEIN 8.88 mg/dL (<=0.50); CALCIUM 8.6 mg/dL (8.5-10.1); CREATININE 1.2 mg/dL (0.55-1.02); EST CRCL DRUG DOSING (CG) 35.89 mL/min; MAGNESIUM 1.6 mg/dL (1.8-2.4); POTASSIUM,K 3.7 mmol/L (3.5-5.1); PROTEIN TOTAL,TP 6.3 g/dL (6.4-8.2)
[2023-06-28] MEDS ORDERED: Warfarin 5 MG Tab PO SCH (09:00)
[2023-06-28] MEDS: Furosemide 20 MG Tab PO SCH (09:24)
[2023-06-28] MEDS: Metoprolol Succinate 50 MG Tab.ER PO SCH (09:24)
[2023-06-28] MEDS: Lisinopril 5 MG Tab PO SCH (09:24)
[2023-06-28] MEDS: Magnesium Oxide 400 MG Tab PO SCH (09:25)
[2023-06-28] MEDS: Lactated Ringers 1,000 ML IV SCH ×2 (09:45→21:16)
[2023-06-28] MEDS: Vancomycin 125 MG Cap PO SCH ×3 (13:22→21:07)
[2023-06-28] MEDS ORDERED: Warfarin 5 MG Tab PO ONE (20:00)
[2023-06-28] MEDS: Gabapentin 100 MG Cap PO SCH (21:07)
[2023-06-29] MEDS: Piperacillin/Tazobactam 4.5 GM in Sodium Chloride 0.9% 100 ML IV SCH ×3 (06:09→22:07)
[2023-06-29 07:06] LABS: BASOPHILS PERCENT AUTO 0.7 % (0.2-1.2); EOSINOPHILS ABSOLUTE AUTO 0.2 x10^3/uL (0.0-0.5); EOSINOPHILS PERCENT AUTO 2.6 % (0.0-4.0); HEMATOCRIT 30.5 % (33.0-47.0); HEMOGLOBIN 9.8 g/dL (12.0-16.0); IMMATURE GRAN ABSOLUTE AUTO 0.02 x10^3/uL (0.00-0.07); LYMPHOCYTES ABSOLUTE AUTO 1.4 x10^3/uL (1.0-4.8); LYMPHOCYTES PERCENT AUTO 24.4 % (25.0-50.0); MEAN CORPUSCULAR HEMOGLOBIN 30.3 pg (26.0-32.0); MEAN CORPUSCULAR HGB CONC 32.1 g/dL (32.0-36.0); MEAN CORPUSCULAR VOLUME 94.4 fL (78.0-93.0); MONOCYTES ABSOLUTE AUTO 0.4 x10^3/uL (0.0-0.8); NEUTROPHILS ABSOLUTE AUTO 3.7 x10^3/uL (1.8-7.7); NEUTROPHILS PERCENT AUTO 64.9 % (50.0-80.0); PLATELET COUNT,PLT 233 x10^3/uL (130-400); RED BLOOD CELL COUNT 3.23 x10^6/uL (4.00-5.50); WHITE BLOOD CELL COUNT,WBC 5.7 x10^3/uL (4.0-10.0)
[2023-06-29 07:17] LABS: INR 2.1 (0.9-1.1); PROTHROMBIN TIME 22.2 SEC (9.5-12.2)
[2023-06-29 07:22] LABS: C-REACTIVE PROTEIN 7.82 mg/dL (<=0.50); CALCIUM 8.9 mg/dL (8.5-10.1); CREATININE 1.1 mg/dL (0.55-1.02); EST CRCL DRUG DOSING (CG) 39.15 mL/min; POTASSIUM,K 3.7 mmol/L (3.5-5.1)
[2023-06-29 07:23] LABS: ANION GAP 15.7 mmol/L (5-15)
[2023-06-29] MEDS: Furosemide 20 MG Tab PO SCH (09:09)
[2023-06-29] MEDS: Magnesium Oxide 400 MG Tab PO SCH (09:09)
[2023-06-29] MEDS: Vancomycin 125 MG Cap PO SCH ×4 (09:09→22:05)
[2023-06-29] MEDS: Metoprolol Succinate 50 MG Tab.ER PO SCH (09:14)
[2023-06-29] MEDS: Lisinopril 5 MG Tab PO SCH (09:15)
[2023-06-29] MEDS: Lactated Ringers 1,000 ML IV SCH (10:53)
[2023-06-29] MEDS ORDERED: Warfarin 5 MG Tab PO ONE (20:00)
[2023-06-29] MEDS: Gabapentin 100 MG Cap PO SCH (22:05)
[2023-06-30] MEDS: Lactated Ringers 1,000 ML IV SCH (00:15)
[2023-06-30] MEDS: Piperacillin/Tazobactam 4.5 GM in Sodium Chloride 0.9% 100 ML IV SCH ×3 (06:10→21:03)
[2023-06-30 07:16] LABS: BASOPHILS PERCENT AUTO 0.7 % (0.2-1.2); EOSINOPHILS ABSOLUTE AUTO 0.2 x10^3/uL (0.0-0.5); EOSINOPHILS PERCENT AUTO 3.8 % (0.0-4.0); HEMOGLOBIN 9.8 g/dL (12.0-16.0); IMMATURE GRAN ABSOLUTE AUTO 0.02 x10^3/uL (0.00-0.07); LYMPHOCYTES ABSOLUTE AUTO 1.5 x10^3/uL (1.0-4.8); LYMPHOCYTES PERCENT AUTO 34.4 % (25.0-50.0); MEAN CORPUSCULAR HEMOGLOBIN 30.4 pg (26.0-32.0); MEAN CORPUSCULAR HGB CONC 32.7 g/dL (32.0-36.0); MEAN CORPUSCULAR VOLUME 93.2 fL (78.0-93.0); MONOCYTES ABSOLUTE AUTO 0.4 x10^3/uL (0.0-0.8); MONOCYTES PERCENT AUTO 9.9 % (2.0-11.0); NEUTROPHILS ABSOLUTE AUTO 2.3 x10^3/uL (1.8-7.7); NEUTROPHILS PERCENT AUTO 50.8 % (50.0-80.0); PLATELET COUNT,PLT 236 x10^3/uL (130-400); RED BLOOD CELL COUNT 3.22 x10^6/uL (4.00-5.50); WHITE BLOOD CELL COUNT,WBC 4.5 x10^3/uL (4.0-10.0)
[2023-06-30 07:33] LABS: C-REACTIVE PROTEIN 5.02 mg/dL (<=0.50); CALCIUM 8.8 mg/dL (8.5-10.1); CREATININE 1.1 mg/dL (0.55-1.02); EST CRCL DRUG DOSING (CG) 39.15 mL/min; MAGNESIUM 1.5 mg/dL (1.8-2.4); POTASSIUM,K 3.5 mmol/L (3.5-5.1)
[2023-06-30 07:35] LABS: ANION GAP 12.5 mmol/L (5-15)
[2023-06-30 07:41] LABS: INR 3.1 (0.9-1.1); PROTHROMBIN TIME 32.4 SEC (9.5-12.2)
[2023-06-30] MEDS: Magnesium Oxide 400 MG Tab PO SCH ×2 (08:55→20:33)
[2023-06-30] MEDS: Furosemide 20 MG Tab PO SCH (08:58)
[2023-06-30] MEDS: Lisinopril 5 MG Tab PO SCH (08:58)
[2023-06-30] MEDS: Vancomycin 125 MG Cap PO SCH ×4 (08:58→20:33)
[2023-06-30] MEDS: Metoprolol Succinate 50 MG Tab.ER PO SCH (08:58)
[2023-06-30] MEDS ORDERED: Iopamidol 612 MG/ML 30 ML SDV IVPUSH ONE (10:14)
[2023-06-30] MEDS ORDERED: Iopamidol 612 MG/ML 100 ML Bottle IVPUSH ONE (10:14)
[2023-06-30] MEDS ORDERED: Warfarin 2 MG Tab PO ONE (20:00)
[2023-06-30] MEDS: Gabapentin 100 MG Cap PO SCH (20:32)
[2023-07-01] MEDS: Piperacillin/Tazobactam 4.5 GM in Sodium Chloride 0.9% 100 ML IV SCH ×2 (05:25→16:17)
[2023-07-01 07:03] LABS: BASOPHILS PERCENT AUTO 0.7 % (0.2-1.2); EOSINOPHILS ABSOLUTE AUTO 0.2 x10^3/uL (0.0-0.5); HEMATOCRIT 32.2 % (33.0-47.0); HEMOGLOBIN 10.5 g/dL (12.0-16.0); IMMATURE GRAN ABSOLUTE AUTO 0.01 x10^3/uL (0.00-0.07); LYMPHOCYTES ABSOLUTE AUTO 1.5 x10^3/uL (1.0-4.8); LYMPHOCYTES PERCENT AUTO 33.7 % (25.0-50.0); MEAN CORPUSCULAR HEMOGLOBIN 30.4 pg (26.0-32.0); MEAN CORPUSCULAR HGB CONC 32.6 g/dL (32.0-36.0); MEAN CORPUSCULAR VOLUME 93.3 fL (78.0-93.0); MONOCYTES ABSOLUTE AUTO 0.4 x10^3/uL (0.0-0.8); MONOCYTES PERCENT AUTO 9.7 % (2.0-11.0); NEUTROPHILS ABSOLUTE AUTO 2.2 x10^3/uL (1.8-7.7); NEUTROPHILS PERCENT AUTO 50.7 % (50.0-80.0); PLATELET COUNT,PLT 256 x10^3/uL (130-400); RED BLOOD CELL COUNT 3.45 x10^6/uL (4.00-5.50); WHITE BLOOD CELL COUNT,WBC 4.4 x10^3/uL (4.0-10.0)
[2023-07-01 07:21] LABS: INR 3.6 (0.9-1.1); PROTHROMBIN TIME 36.5 SEC (9.5-12.2)
[2023-07-01 07:38] LABS: ANION GAP 13.6 mmol/L (5-15); C-REACTIVE PROTEIN 3.49 mg/dL (<=0.50); CALCIUM 8.8 mg/dL (8.5-10.1); CREATININE 1.1 mg/dL (0.55-1.02); EST CRCL DRUG DOSING (CG) 39.15 mL/min; MAGNESIUM 1.7 mg/dL (1.8-2.4); POTASSIUM,K 3.6 mmol/L (3.5-5.1)
[2023-07-01] MEDS: Lisinopril 5 MG Tab PO SCH (08:27)
[2023-07-01] MEDS: Vancomycin 125 MG Cap PO SCH ×2 (08:27→13:13)
[2023-07-01] MEDS: Magnesium Oxide 400 MG Tab PO SCH (08:27)
[2023-07-01] MEDS: Furosemide 20 MG Tab PO SCH (08:27)
[2023-07-01] MEDS: Metoprolol Succinate 50 MG Tab.ER PO SCH (08:30)
[2023-07-01] MEDS ORDERED: Non-Formulary Medication 1 Each PO SCH (09:00)
[2023-07-01 15:07] VITALS: BP 120/61; PULSE 74
[2023-07-01] MEDS ORDERED: metroNIDAZOLE 500 MG Tab PO SCH (21:00)
== END 2023-07-01 16:00 | disposition home or self-care (01) | DRG 391 ==
LOC: VM.MS 17:05
PROVIDERS: ADMIT Family Medicine; ATTEND Family Medicine
DX: K57.20 Diverticulitis of large intestine with perforation and abscess without bleeding (principal); I50.33 Acute on chronic diastolic (congestive) heart failure; A04.72 Enterocolitis due to Clostridium difficile, not specified as recurrent; N39.0 Urinary tract infection, site not specified; I13.0 Hypertensive heart and chronic kidney disease with heart failure and stage 1 through stage 4 chronic kidney disease, or unspecified chronic kidney disease; N18.32 Chronic kidney disease, stage 3b; E78.00 Pure hypercholesterolemia, unspecified; I48.0 Paroxysmal atrial fibrillation; D63.1 Anemia in chronic kidney disease; I25.10 Atherosclerotic heart disease of native coronary artery without angina pectoris; E11.22 Type 2 diabetes mellitus with diabetic chronic kidney disease; E83.42 Hypomagnesemia; E66.9 Obesity, unspecified; B96.20 Unspecified Escherichia coli [E. coli] as the cause of diseases classified elsewhere; B96.1 Klebsiella pneumoniae [K. pneumoniae] as the cause of diseases classified elsewhere; Z98.51 Tubal ligation status; Z86.711 Personal history of pulmonary embolism; Z88.5 Allergy status to narcotic agent; Z98.41 Cataract extraction status, right eye; Z98.42 Cataract extraction status, left eye; Z90.89 Acquired absence of other organs; Z90.49 Acquired absence of other specified parts of digestive tract; Z79.01 Long term (current) use of anticoagulants; Z68.27 Body mass index [BMI] 27.0-27.9, adult
CPT/HCPCS: 36415; 74177; 80048; 80053; 81001; 82947; 83605; 83735; 83880; 84145; 85025; 85610; 86140; 87086; 87088; 87186; A9270-GY; J2543; J3490; J7120; Q9967